=== PATIENT | male | born 1965 | race Caucasian/White ===

== ENCOUNTER 2017-10-08 17:40 | Emergency (ER) | payer SELFPAY ==
[~2017-10-08] VITALS: Ht 177.8 cm; Wt 116.1 kg
[2017-10-08 18:53] LABS: HEMATOCRIT 45.2 % (38.0-50.0); MCH 33.5 PG (29.0-34.0); MCHC 35.4 G/DL (30.0-36.0); MCV 94.8 FL (86-99); PLATELET COUNT 220 K/uL (156-360); RBC DIS.WIDTH-CV 11.6 % (11.8-14.6); RBC DIS.WIDTH-SD 40.3 % (39-53); RED BLOOD COUNT 4.77 M/uL (4.00-5.50); WHITE BLOOD COUNT 9.5 K/uL (4.1-10.2)
[2017-10-08 19:04] LABS: CHLORIDE 105 mEq/L (99-109); SODIUM 139 mEq/L (136-147)
[2017-10-08 19:06] LABS: GLUCOSE 165 mg/dL (70-99)
[2017-10-08 19:10] LABS: CREATININE 0.9 mg/dL (0.6-1.3); GFR ESTIMATE (CALCULATED) > 59 mL/min/ (58.99-99999)
[2017-10-08 19:11] LABS: UREA NITROGEN (BUN) 18 mg/dL (9-23)
[2017-10-08 19:20] LABS: TROP-I INTERPRETATION NEGATIVE; TROPONIN-I 0.09 ng/mL (0.0-0.30)
[2017-10-08 21:50] VITALS: BP 136/76
== END 2017-10-08 21:05 | disposition left against medical advice (07) ==
LOC: EME 17:40
PROVIDERS: Emergency Medicine
DX: R07.9 Chest pain, unspecified (principal); F17.210 Nicotine dependence, cigarettes, uncomplicated
CPT/HCPCS: 71046; 80048; 84484; 85027; 93005; 99281; 99285

== ENCOUNTER 2018-02-21 10:03 | Day surgery (SDC) | payer SELFPAY ==
[~2018-02-21] VITALS: Ht 175.3 cm; Wt 109.0 kg
[~2018-02-21 10:03] MED LIST: ASPIRIN81 M2 PO; METOPROLOL SUCC50 MG PO; NITROSTAT0.4 MG SL
[2018-02-21 13:38] LABS: HDL CHOLESTEROL 38 MG/DL (Desirable>=40); LDL CHOLESTEROL 126 mg/dL (Desirable<100); NON-HDL CHOLESTEROL 135 mg/dL (Desirable<160); TOTAL CHOLESTEROL 173 mg/dL (Desirable<200); TRIGLYCERIDES 44 MG/DL (Normal: <150)
== END 2018-02-21 16:09 | disposition home or self-care (01) ==
LOC: CATH 10:03
PROVIDERS: Internal Medicine Cardiovascular Disease
DX: I25.10 Atherosclerotic heart disease of native coronary artery without angina pectoris (principal); I25.82 Chronic total occlusion of coronary artery; I25.5 Ischemic cardiomyopathy; F17.200 Nicotine dependence, unspecified, uncomplicated; Z79.82 Long term (current) use of aspirin; E66.9 Obesity, unspecified; Z68.35 Body mass index [BMI] 35.0-35.9, adult
CPT/HCPCS: 80061; C1769; C1887; J1644; J2250; J3010